=== PATIENT | female | born 1995 | race Caucasian/White ===

== ENCOUNTER 2018-06-15 22:06 | Emergency (ER) | payer BC, OTHER ==
[2018-06-15 23:26] LABS: URINE BLOOD (Dip) POC 3+ (NEGATIVE); URINE GLUCOSE (Dip) POC Negative (NEGATIVE); URINE KETONES (Dip) POC Trace (NEGATIVE); URINE LEUKOCYTE EST (Dip) POC 1+ (NEGATIVE); URINE NITRITE (Dip) POC Negative (NEGATIVE); URINE TOTAL PROTEIN POC 2+ (NEGATIVE)
[2018-06-15] MEDS: KETOROLAC 30 MG INJ IM (23:36)
== END 2018-06-16 01:53 | disposition home or self-care (01) ==
LOC: FTE 22:06
DX: M54.5 Low back pain (principal); N39.0 Urinary tract infection, site not specified
CPT/HCPCS: 72100; 81003; 81025; 96372; 99284-25